=== PATIENT | male | born 1940 | race Caucasian/White ===

== ENCOUNTER 2016-10-13 13:14 | Inpatient (IN) | payer MEDICARE ==
[~2016-10-13] VITALS: Ht 172.7 cm; Wt 117.0 kg
[2016-10-13 14:29] LABS: BASOPHILS 0.1 % (0.0-2.0); EOSINOPHILS 0.6 % (0-7); HEMATOCRIT 35.8 % (42.0-54.0); HEMOGLOBIN 11.5 g/dL (13.5-17.5); IMMATURE GRANULOCYTES 0.9 % (0-5); LYMPHOCYTES 22.6 % (15-50); MCH 29.8 pg (26.0-34.0); MCHC 32.1 g/dL (31.0-37.0); MCV 92.7 fL (80.0-100.0); MEAN PLATELET VOLUME 9.3 fL (7.4-10.4); MONOCYTES 8.4 % (2-11); NEUTROPHILS 67.4 % (40-80); PLATELET COUNT 267 10x3/uL (130-400); RBC 3.86 10x6/uL (4.20-6.10); RDW 16.4 % (11.5-14.5); WBC 17.4 10x3/uL (4.8-10.8)
[2016-10-13 14:40] LABS: ALBUMIN 1.3 g/dL (3.4-5.0); ALKALINE PHOSPHATASE 158 U/L (46-116); ALT (SGPT) 13 U/L (10-68); BILIRUBIN - TOTAL 0.73 mg/dL (0.2-1.3); CALC OSMOLALITY 290 mosm/kg (275-300); CALCIUM 7.8 mg/dL (8.5-10.1); CARBON DIOXIDE 30.2 mmol/L (21.0-32.0); CHLORIDE - SERUM 108 mmol/L (98-107); CREATININE - SERUM 0.9 mg/dL (0.6-1.3); GLUCOSE 153 mg/dL (74-106); PROTEIN - SERUM 5.6 g/dL (6.4-8.2); SODIUM 145 mmol/L (136-145); UREA NITROGEN 11 mg/dL (7-18); eGFR NON AFRICAN AMERICAN 87 mL/min (90-120)
[2016-10-13 14:45] LABS: POTASSIUM - SERUM 2.7 mmol/L (3.5-5.1)
[2016-10-13 15:05] LABS: INR 1.36 (0.85-1.17); PROTIME 16.6 SECONDS (11.6-15.0)
[2016-10-13 16:07] LABS: APPEARANCE HAZY (CLEAR); COLOR DK YELLOW (YELLOW)
[2016-10-13 16:08] LABS: BILIRUBIN NEGATIVE (NEGATIVE); GLUCOSE NEGATIVE (NEGATIVE); KETONE NEGATIVE (NEGATIVE); LEUKOCYTE ESTERASE 2+ (NEGATIVE); NITRITE NEGATIVE (NEGATIVE); PROTEIN 1+ mg/dL (NEGATIVE); UROBILINOGEN NORMAL (NORMAL)
[2016-10-13 16:09] LABS: WHITE CELLS - URINE >50 /hpf (0-5)
[2016-10-13 16:10] LABS: BACTERIA MANY /hpf (NONE SEEN)
--- NOTE | 2016-10-13 22:05 | NUR ---
PT RECIEVED FROM ER VIA STRETCHER TO ROOM 2237. TRANSFERRED TO BED WITH A 4 PERSON SHEET LIFT. PT IS ALERT AND ORIENTED X 2. ABLE TO ANSWER PERSONAL QUESTIONS APPROPRIATELY. PT HAS A RIGHT LEG STUMP INCISION THAT HAS EVULSED A LARGE AREA. NO DRESSING NOTED ON IT. SEROUS DRAINAGE WITH A VERY FOUL ODOR NOTED. SITE CLEANSED WITH NS, AND A NS WET TO DRY DRESSING APPLIED. PEELING DUODERM DRESSING NOTED ON COCCYX. 3 STAGE 2 ULCERS NOTED. SITE CLEANSED, AND MEPILEX DRESSING APPLIED. LEFT UPPER ARM HAS 2 HEALING SKIN TEARS. RIGHT REAR SHOULDER HAS A STAGE 1 ULCER THAT WILL NOT IVETT. LEFT HEEL HAS 2 UNSTAGEABLE ULCERS. PT POSITIONED IN BED WITH PILLOWS. SR'S ARE UP X 3 IN BED. CALLLIGHT AND BEDSIDE TABLE ARE WITHIN EASY REACH.
[2016-10-13 23:26] VITALS: BMI 39.4
--- NOTE | 2016-10-13 23:53 | NUR ---
PT IS RESTING QUIETLY IN BED WITH EYES CLOSED. RESPS ARE EVEN AND UNLABORED. NO ACUTE DISTRESS NOTED.
[2016-10-14] VITALS (7 sets, daily range): BP systolic 93–152; BP diastolic 65–102; Ht 172.7 cm; Wt 117.0 kg
[2016-10-14] MEDS ORDERED: HUMULIN R100 U/ML SC (00:48)
[2016-10-14] MEDS ORDERED: ONDANSETRON4 MG/2 M3 IV (00:49)
[2016-10-14] MEDS ORDERED: ACETAMINOPHEN500 M1 PO (01:33)
[2016-10-14] MEDS ORDERED: HYDROCODONE-APA1 TAB PO (01:34)
[2016-10-14] MEDS ORDERED: PRINIVIL20 MG PO (01:34)
[2016-10-14] MEDS ORDERED: DITROPAN X5 MG/BOTTL PO (01:35)
--- NOTE | 2016-10-14 01:47 | NUR ---
PT IS RESTING QUIETLY IN BED WITH EYES CLOSED. RESPS ARE EVEN AND UNLABORED. NO ACUTE DISTRESS NOTED.
--- NOTE | 2016-10-14 03:41 | NUR ---
RESTING QUIETLY IN BED WITH EYES CLOSED. NO ACUTE DISTRESS NOTED.
--- NOTE | 2016-10-14 06:56 | NUR ---
PT RESTING IN BED WITH EYES CLOSED. NO ACUTE DISTRESS NOTED.
--- NOTE | 2016-10-14 07:30 | NUR ---
QUIET IN ROOM AT PRESENT DENIES ANY NEEDS AT THIS TIME IV CONT AT 100CC/HR/IVAC/LAC SPACE AT PRESENT SITE CLEAN AND DRY AT PRESENT.
--- NOTE | 2016-10-14 09:15 | NUR ---
CONT NPO AT PRESENT DENIES ANY NEEDS AT PRESENT.
--- NOTE | 2016-10-14 11:00 | NUR ---
CONT NPO AT PRESENT DENIES ANY NEEDS AT THIS TIME.
[2016-10-14 13:08] LABS: CALC OSMOLALITY 289 mosm/kg (275-300); CALCIUM 7.2 mg/dL (8.5-10.1); CARBON DIOXIDE 23.6 mmol/L (21.0-32.0); CHLORIDE - SERUM 110 mmol/L (98-107); CREATININE - SERUM 0.7 mg/dL (0.6-1.3); GLUCOSE 142 mg/dL (74-106); SODIUM 145 mmol/L (136-145); UREA NITROGEN 10 mg/dL (7-18); eGFR NON AFRICAN AMERICAN > 90 mL/min (90-120)
[2016-10-14 13:09] LABS: POTASSIUM - SERUM 3.6 mmol/L (3.5-5.1)
--- NOTE | 2016-10-14 13:15 | NUR ---
TO OR VIA BED AT PRESENT N/C AT PRESENT.
--- NOTE | 2016-10-14 14:53 | NUR ---
UPON ENTRANCE TO THE PATIENTS ROOM ON THE FLOOR HE STARTED MOANING AND COMPLAINED OF SOME PAIN. DILAUDID 1 MG IV WAS GIVEN PER ANESTHESIA ORDER. OIL SPRAYER WAITING 10 MIN WITH THE PATIENT AFTER ADMINISTRATION. THE PATIENT THEN REPORTS A DECREASE IN PAIN AND IS RESTING COMFORTABLE
--- NOTE | 2016-10-14 15:33 | NUR ---
ICE TO STUMP AT PRESENT.
--- NOTE | 2016-10-14 16:02 | NUR ---
CONT TO SLEEP QUIETLY AT PRESENT N/C AT PRESENT.
[2016-10-14 16:54] LABS: BASOPHILS 0.2 % (0.0-2.0); HEMATOCRIT 34.3 % (42.0-54.0); HEMOGLOBIN 10.8 g/dL (13.5-17.5); IMMATURE GRANULOCYTES 1.1 % (0-5); LYMPHOCYTES 28.9 % (15-50); MCH 29.3 pg (26.0-34.0); MCHC 31.5 g/dL (31.0-37.0); MCV 93.2 fL (80.0-100.0); NEUTROPHILS 59.8 % (40-80); PLATELET COUNT 257 10x3/uL (130-400); RBC 3.68 10x6/uL (4.20-6.10); RDW 16.5 % (11.5-14.5)
[2016-10-14 16:56] LABS: WBC 11.2 10x3/uL (4.8-10.8)
[2016-10-14 17:11] LABS: APTT 47.7 SECONDS (22.8-39.4); INR 1.36 (0.85-1.17); PROTIME 16.7 SECONDS (11.6-15.0)
--- NOTE | 2016-10-14 20:10 | NUR ---
REC'D IN BED WITH EYES CLOSED EASILY AROUSED WHEN NAME IS CALLED. RESP EVEN AND UNLABORED WITN NO DISTRESS NOTED. CAN EXPRESS SOME NEEDS AND WANTS. ASSESSMENT COMPLETED. C/L IN REACH AT BEDSIDE.
[2016-10-15] VITALS: BP 113/68
--- NOTE | 2016-10-15 02:46 | NUR ---
PT IS ASLEEP WITH EASY RESPIRATIONS AND NO DISTRESS NOTED. THE PATIENT IS ON ROOM AIR AND THERE IS A WOUND VAC IN PLACE WORKING. THE BED IS LOW, RAILS UP X'S 2 WITH THE CALL LIGHT AT HAND.
[2016-10-15 04:00] VITALS: BP 118/76
[2016-10-15 07:31] LABS: BASOPHILS 0.1 % (0.0-2.0); EOSINOPHILS 0.9 % (0-7); HEMATOCRIT 31.1 % (42.0-54.0); HEMOGLOBIN 9.9 g/dL (13.5-17.5); LYMPHOCYTES 28.1 % (15-50); MCH 29.5 pg (26.0-34.0); MCHC 31.8 g/dL (31.0-37.0); MCV 92.6 fL (80.0-100.0); MEAN PLATELET VOLUME 9.1 fL (7.4-10.4); MONOCYTES 9.3 % (2-11); NEUTROPHILS 60.6 % (40-80); PLATELET COUNT 257 10x3/uL (130-400); RBC 3.36 10x6/uL (4.20-6.10); RDW 16.6 % (11.5-14.5); WBC 9.9 10x3/uL (4.8-10.8)
[2016-10-15 07:58] LABS: CALC OSMOLALITY 287 mosm/kg (275-300); CARBON DIOXIDE 26.3 mmol/L (21.0-32.0); CHLORIDE - SERUM 110 mmol/L (98-107); CREATININE - SERUM 0.8 mg/dL (0.6-1.3); GLUCOSE 106 mg/dL (74-106); SODIUM 145 mmol/L (136-145); THYROID STIMULATING HORMONE 2.09 uIU/mL (0.36-3.74); UREA NITROGEN 9 mg/dL (7-18); eGFR NON AFRICAN AMERICAN > 90 mL/min (90-120)
--- NOTE | 2016-10-15 08:00 | NUR ---
PATIENT RECIEVED DURING WALKING ROUNDS. PATIENT LYING IN BED WITH EVEN RESPIRATIONS. LAB HAS CALLED AND REPORTED A LOW POTASSIUM OF 2.8 AND A LOW MAGNESIUM OF 1.0, BOTH OF WHICH WILL BE CORRECTED WITH ELECTROLYTE PROTOCOL. PT ALSO HAS A LOW CALCIUM LEVEL OF 6.7, MD FOLLOWING. ASSESSMENT DONE PER FLOW SHEET. BED IN LOW POSITION AND CALL LIGHT WITHIN REACH. WILL CONTINUE TO MONITOR.
[2016-10-15 08:02] LABS: CALCIUM 6.7 mg/dL (8.5-10.1); POTASSIUM - SERUM 2.8 mmol/L (3.5-5.1)
[2016-10-15 08:24] VITALS: BP 152/84
[2016-10-15 11:52] VITALS: BP 97/50
--- NOTE | 2016-10-15 12:16 | NUR ---
PATIENT IN BED WITH EYES CLOSED RESTING QUIETLY AT THIS TIME. NO COMPLAINTS. CALL LIGHT WITHIN REACH.
--- NOTE | 2016-10-15 15:52 | HP ---
PATIENT: MARIANO VARGAS MEDICAL RECORD: [id number] ACCOUNT: [id number] LOCATION:D.[facility] [id number] : 40 ADMISSION DATE: 10/13/16 HISTORY AND PHYSICAL EXAMINATION HISTORY OF PRESENT ILLNESS: A 75-year-old white male was brought in to the Emergency Room by ambulance from a local [facility] for evaluation of mental status changes. Evidently, the patient had had a right BKA done approximately 3-4 weeks ago and has had some wound dehiscence. Since that time, the patient began having some confusion and was brought in and evaluated appropriately in the Emergency Room and was found to be admitted for further evaluation. The patient does have an obvious wound dehiscence on his right lower extremity. He also had UTI and some other medical problems. The patient will be admitted to the hospital and orthopedic consultation will be obtained. PAST MEDICAL HISTORY: Significant for peripheral vascular disease, right BKA and type 2 diabetes mellitus, low back pain, osteoarthritis, dysphagia, chronic kidney disease, cognitive communication defect, hypertension, hyperlipidemia, coronary artery disease, vitamin D deficiency, GERD, arrhythmia and constipation. PAST SURGICAL HISTORY: Includes recent right BKA. HABITS: The patient does not smoke, does not drink alcohol. MEDICATIONS: Include oxycodone, Celexa, Carafate, Zofran, Prilosec, MS Contin, ProMod, multivitamin, Zinc, Zocor, metoprolol, Colace, digoxin and vitamin C. REVIEW OF SYSTEMS: As above. PHYSICAL EXAMINATION: VITAL SIGNS: As below. GENERAL: He is a well-developed, well-nourished, confused 75-year-old obese white male who is resting comfortably in the ER, has a Lowery intact with a very thick discolored urine and a right wound dehiscence that is present. HEENT: His pupils do react to light. Extraocular movements are intact. He does open his eyes and follow commands. NECK: No nuchal rigidity is noted. LUNGS: Clear to auscultation bilaterally. HEART: Regular rate and rhythm with a I/ systolic ejection murmur. ABDOMEN: Soft, obese and nontender. Positive bowel sounds. No hepatosplenomegaly, no masses. EXTREMITIES: He has a wound dehiscence on the right lower extremity with granulation tissue present. Stitches are still present. He has 1+ DP pulses and has 1+ dependent edema in the left lower extremity. LABORATORY DATA: Urinalysis shows many bacteria, greater than 50 wbc's. Potassium is low at 2.7. ASSESSMENT: 1. Wound dehiscence. 2. Sepsis. 3. Type 2 diabetes mellitus. 4. Cognitive dysfunction. 5. Hypertension. HISTORY AND PHYSICAL [id number] MARIANO VARGAS 6. Arrhythmia. PLAN: The patient will be admitted to the hospital, orthopedic evaluation will be obtained. We will replace potassium, check laboratory appropriately, antibiotics and follow the patient. TRANSINT:[id number] Voice Confirmation ID: [id number] DOCUMENT ID: [id number] VIOLET SHERIDAN MD at 1552 CC: [id number] DICTATION DATE: 10/13/161802 COMMERCIAL FIELD INSPECTOR: 10/13/161955 ADM IN [facility] [address] [place] [address]
[2016-10-15 16:27] VITALS: BP 87/47
--- NOTE | 2016-10-15 18:24 | NUR ---
RECHECKED BP FROM 1630 READING. BP NOW 95/60. WILL CONTINUE TO MONITOR.
[2016-10-15 19:00] VITALS: BP 104/62
--- NOTE | 2016-10-15 19:40 | NUR ---
ASSESSMENT COMPLETED, WOUND VAC TO R STUMP ON AND RUNNING AT 125MM/HG NO ACUTE DISTRESS NOTED, CL IN REACH, DOOR OPEN FOR EASY VIEWING, WILL MONITOR
--- NOTE | 2016-10-15 20:15 | NUR ---
INFORMED DUGLAS LYON OF BLOOD PRESSURE SITUATION AND TO CONTINUE TO MONITOR. PT IS CURRENTLY STABLE NO SIGNS OF DISTRESS NOTED.
--- NOTE | 2016-10-16 01:26 | NUR ---
PRN NORCO GIVEN FOR R STUMP PAIN, ADALID WELL
--- NOTE | 2016-10-16 01:32 | NUR ---
IV TO L AC INFILTRATED, DC'D WITH CATH INTACT, PT REFUSES TO ALLOW RESITING, REFUSING ALL MEDICATIONS, STATES "I'M GONNA HAVE A SERIOUS TALK WITH MY SON, THE DOCTOR AND THE SHERRIF" WILL MONITOR
[2016-10-16 04:00] VITALS: BP 121/81
[2016-10-16 06:03] LABS: BASOPHILS 0.2 % (0.0-2.0); EOSINOPHILS 0.8 % (0-7); HEMATOCRIT 31.3 % (42.0-54.0); HEMOGLOBIN 9.9 g/dL (13.5-17.5); LYMPHOCYTES 29.1 % (15-50); MCH 29.2 pg (26.0-34.0); MCHC 31.6 g/dL (31.0-37.0); MCV 92.3 fL (80.0-100.0); MEAN PLATELET VOLUME 9.1 fL (7.4-10.4); MONOCYTES 6.8 % (2-11); NEUTROPHILS 62.1 % (40-80); PLATELET COUNT 283 10x3/uL (130-400); RBC 3.39 10x6/uL (4.20-6.10); RDW 16.9 % (11.5-14.5); WBC 11.9 10x3/uL (4.8-10.8)
[2016-10-16 06:09] LABS: CALC OSMOLALITY 288 mosm/kg (275-300); CALCIUM 7.1 mg/dL (8.5-10.1); CARBON DIOXIDE 27.2 mmol/L (21.0-32.0); CHLORIDE - SERUM 112 mmol/L (98-107); CREATININE - SERUM 0.7 mg/dL (0.6-1.3); GLUCOSE 94 mg/dL (74-106); SODIUM 146 mmol/L (136-145); UREA NITROGEN 6 mg/dL (7-18); eGFR NON AFRICAN AMERICAN > 90 mL/min (90-120)
--- NOTE | 2016-10-16 06:57 | NUR ---
CONTINUES TO REFUSE TO ALLOW IV TO BE RESITED
--- NOTE | 2016-10-16 07:40 | NUR ---
RECIEVED PT DURING WALKING ROUNDS. PT IN BED WITH COMPLAINTS OF PAIN OF A 10 ON A SCALE OF 1-10. INFORMED PT THAT PAIN MEDICATION WOULD BE GIVEN PER ORDER. PT REFUSES TO LET THIS NURSE RESITE IV AT THIS TIME. ASSESSMENT DONE PER FLOWSHEET. BED IN LOW POSITION AND CALL LIGHT WITHIN REACH. WILL CONTINUE TO MONITOR.
--- NOTE | 2016-10-16 08:30 | NUR ---
POTASSIUM LIQUID GIVEN PER PROTOCOL FOR A POTASSIUM OF 3.0. PT WOULD NOT DRINK THE WHOLE AMOUNT AT THIS TIME. WILL CONTINUE TO MONITOR AMOUNT TAKEN IN. BED IN LOW POSITION AND CALL LIGHT WITHIN REACH. WILL CONTINUE TO MONITOR.
--- NOTE | 2016-10-16 09:00 | NUR ---
WITHOUT DISTRESS.BED CAHPADILLAE AND PT REPOSITIONED BY MYSELF AND HEYDI.CALL LIGHT IN REACH
[2016-10-16 10:20] VITALS: BP 165/75
--- NOTE | 2016-10-16 11:00 | NUR ---
PV NURSE DUGLAS GERARDO ATTEMPTED TO RESITE IV AND WAS UNSUCCESSFUL. SPOKE WITH MICHELLE LOVE AND RECIEVED ORDERS FOR A CONSULT FOR MIDLINE OR PICC. WILL CONTINUE TO PATO.
--- NOTE | 2016-10-16 11:33 | NUR ---
Patient Name: MARIANO VARGAS Admission Status: ER Accout number: [id number] Admission Date: 10-13-2016 : 1940 Admission Diagnosis: Attending: RADHA Current LOS: 3 Anticipated DC Date: 10-19-2016 Planned Disposition: [facility] Facility Primary Insurance: [facility] Discharge Planning Comments: CM SPOKE WITH PATIENT AND SON (MARIANO) REGARDING D/C NEEDS AND PLANS. PATIENT STATED HE LIVES ALONE AND HAS A WHEELCHAIR. PATIENT IS CURRENTLY FROM THE [facility]. PATIENTS PCP IS DR. PISANO IN [place] AND HE USES [facility] IN [place] FOR HIS PHARMACY. PATIENTS SON (MARIANO) STATED PATIENTS HOUSE HAS BEEN REMODELD FOR HIM TO GET AROUND IN USING HIS MOTORIZED WHEELCHAIR. CM WILL CONTINUE TO FOLLOW PATIENT WITH D/C NEEDS AND PLANS. PCP [facility] IN [place] MARIANO CHRISTIANSON) [phone] OR [phone] Forensic Anthropologist: Sabrina Lange Is the patient Alert and Oriented? Yes 0 * How many steps to enter\exit or inside your home? 0 0 * PCP DR. PISANO IN [place] 0 * Pharmacy [facility] IN [place] 0 * Preadmission Environment [facility] Facility 0 * Facility Name [facility] 0 * ADLs Partial Dependent 0 * Partial ADLs (Assistance needed) Ambulation Bathing Dressing Medication Management Toileting Transfers 0 * Equipment Hospital Bed Wheelchair 0 * List name and contact numbers for known caregivers / representatives who currently or will assist patient after discharge: MARIANO CHRISTIANSON) [phone] 0 * Additional services required to return to the preadmission environment? Yes 0 * Can the patient safely return to the preadmission environment? Yes 0 * Has this patient been hospitalized within the prior 30 days at any hospital? No 0 Grand Total: 0
[2016-10-16 13:50] VITALS: BP 115/67
--- NOTE | 2016-10-16 16:24 | NUR ---
WOUND VAC DRESSING CHANGE. 11CM X 14CM RIGHT BKA REVISION ON 10/14/[address] BENNETT. WOUND BED IS RED. BLEEDS EASILY. NO ODOR. NOTHING EXPOSED. BLACK FOAM TO WOUND BED. -125MMHG/MOD/CONTINUOUS SETTINGS. PT TOLERATED WELL.
[2016-10-16 16:58] VITALS: BP 122/70
[2016-10-16 18:29] LABS: MAGNESIUM - SERUM 1.1 mg/dL (1.8-2.4); PHOSPHOROUS 2.6 mg/dL (2.5-4.9); POTASSIUM - SERUM 3.3 mmol/L (3.5-5.1)
--- NOTE | 2016-10-16 19:58 | NUR ---
RECIEVED PT LYING IN BED WITH BLANKET THROWN OFF, ASSESSMENT COMPLETED, NO ACUTE DISTRESS NOTED, KENNEDY DRAINING, COVERED PT, SAFETY PRECAUTIONS IN PLACE, CL IN REACH, WILL MONITOR
[2016-10-16 21:00] VITALS: BP 153/58
--- NOTE | 2016-10-16 23:10 | NUR ---
RESTING WITH EYES CLOSED, SNORING RESP, NO DISTRESS NOTED, SAFETY MEASURES IN PLACE
[2016-10-17 01:00] VITALS: BP 130/62
--- NOTE | 2016-10-17 01:19 | NUR ---
PT AGREED TO MEDS PER MAR AT THIS TIME, NO INSULIN GIVEN PER SLIDING SCALE FOR BS OF 88, SAFETY MEASURES IN PLACE
--- NOTE | 2016-10-17 02:48 | NUR ---
PRN PAIN MED GIVEN PER NOV FOR C/O OF BACK/LEG PAIN, ADALID WELL, REPOSITIONED IN BED, DENIES FURTHER NEEDS AT THIS TIME, WILL MONITOR, SAFETY MEASURES IN PLACE
[2016-10-17 05:47] LABS: BASOPHILS 0.2 % (0.0-2.0); EOSINOPHILS 0.7 % (0-7); HEMATOCRIT 32.3 % (42.0-54.0); HEMOGLOBIN 10.3 g/dL (13.5-17.5); IMMATURE GRANULOCYTES 1.3 % (0-5); LYMPHOCYTES 26.4 % (15-50); MCH 29.4 pg (26.0-34.0); MCHC 31.9 g/dL (31.0-37.0); MCV 92.3 fL (80.0-100.0); MONOCYTES 7.5 % (2-11); NEUTROPHILS 63.9 % (40-80); PLATELET COUNT 289 10x3/uL (130-400); RDW 17.1 % (11.5-14.5); WBC 13.2 10x3/uL (4.8-10.8)
[2016-10-17 06:13] LABS: ALBUMIN 1.1 g/dL (3.4-5.0); ALKALINE PHOSPHATASE 137 U/L (46-116); ALT (SGPT) 12 U/L (10-68); CALC OSMOLALITY 283 mosm/kg (275-300); CALCIUM 7.1 mg/dL (8.5-10.1); CARBON DIOXIDE 26.2 mmol/L (21.0-32.0); CHLORIDE - SERUM 110 mmol/L (98-107); CREATININE - SERUM 0.7 mg/dL (0.6-1.3); GLUCOSE 115 mg/dL (74-106); POTASSIUM - SERUM 3.1 mmol/L (3.5-5.1); PROTEIN - SERUM 5.1 g/dL (6.4-8.2); SODIUM 143 mmol/L (136-145); UREA NITROGEN 7 mg/dL (7-18); eGFR NON AFRICAN AMERICAN > 90 mL/min (90-120)
[2016-10-17 08:22] VITALS: BP 118/77
--- NOTE | 2016-10-17 09:00 | NUR ---
SCHEDULED MEDICATIONS ADMINISTERED AT THIS TIME. PT DENIES NEED FOR PAIN MEDICATION AT THIS TIME. ASSESSMENT PERFORMED PER FLOWSHEET. ORIENTED TO PERSON AND TIME ONLY. LEFT ARM NOTED TO BE SWOLLEN IN COMPARISON. LEFT UPPER ARM MIDLINE CHECKED FOR BLOOD RETURN, BUT THERE WAS NOT ANY. NOTIFIED HUMAIRA OF THIS FINDING. CALL LIGHT IN REACH, SRX2 AND BED IN LOWEST POSITION AND LOCKED. WOUND VAC REMAINS PATENT TO RIGHT BKA. WILL CONTINUE WITH PLAN OF CARE.
--- NOTE | 2016-10-17 10:30 | NUR ---
IV PLACEMENT CHECKED VIA ULTRASOUND BY DUGLAS GERARDO. LEFT HAND/ARM SWOLLEN D/T IV INFILTRATION TO LEFT ARM YESTERDAY. PLACEMENT VERIFIED AND LEFT UPPER ARM MIDLINE PATENT.
[2016-10-17 11:47] VITALS: BP 104/51
--- NOTE | 2016-10-17 12:46 | NUR ---
SCHEDULED MEDICATIONS ADMINISTERED AT THIS TIME. FSBS 134. ELECTROLYTE PROTOCOL INITIATED IV FOR POTASSIUM 3.1 SINCE PT REFUSES TO DRINK ORAL POTASSIUM LIQUID MIXED IN JUICE.
--- NOTE | 2016-10-17 14:24 | NUR ---
NUTRITION MONITORING & EVAL PT SLEEPING. DIABETIC DIET WITH CURRENT POOR PO INTAKE. NOTE PT FOR PROCEDURE ON SUNDAY. RD FOLLOWING
--- NOTE | 2016-10-17 14:59 | NUR ---
SECOND 10 MEQ BAG OF POTASSIUM HUNG AT THIS TIME. PT SLEEPING. LEFT MESSAGE ON SINDY'S PHONE, 2228, REGARDING WOUND CARE.
--- NOTE | 2016-10-17 16:10 | NUR ---
PRN NORCO ADMINISTERED PER ORDER FOR PAIN 10/10. DRESSING CHANGE PROVIDED TO RIGHT AND LEFT BUTTOCK AND LEFT HEEL WITH THE ASSISTANCE OF DUGLAS HUNTERSOFTWARE ENGINEER SALES NURSE. KENNEDY CARE PROVIDED WITH CATHETER CARE WIPES. STICKER PLACED ON KENNEDY CASSETTE. PT TOLERATED WITH MODERATE AMOUNT OF PAIN. CALL LIGHT IN REACH, WILL CONTINUE WITH PLAN OF CARE.
[2016-10-17 16:21] VITALS: BP 100/56
[2016-10-17 19:00] VITALS: BP 114/78
--- NOTE | 2016-10-17 20:11 | NUR ---
4 UNITS INSULIN GIVEN FOR BS OF 167 PER SLIDING SCALE, ADALID WELL, SAFETY PRECAUTIONS IN PLACE
[2016-10-18 04:00] VITALS: BP 107/66
--- NOTE | 2016-10-18 08:00 | NUR ---
DENIES WANTING TO EAT AT THIS TIME. ALERT AND ORIENTED TO SELF AND PLACE. WOUND VAC PRESENT TO RIGHT STUMP. CALL LIGHT IN REACH, WILL CONTINUE WITH PLAN OF CARE.
[2016-10-18 08:24] VITALS: BP 95/64
--- NOTE | 2016-10-18 10:15 | NUR ---
DRESSING CHANGE PERFORMED TO PT'S BUTTOCK AT THIS TIME. KENNEDY CARE PROVIDED WITH KENNEDY CARE WIPES. SCD TO LEFT LEG AND LEFT LEG ELEVATED, SO THAT HEEL WAS BRIDGED. ASSESSMENT PERFORMED PER FLOWSHEET. CALL LIGHT IN REACH, WILL CONTINUE WITH PLAN OF CARE.
--- NOTE | 2016-10-18 12:30 | NUR ---
LAB DRAWN AT THIS TIME. EXPLAINED TO PT THAT THE LAB WORK WAS IMPORTANT IN DETERMINING KIDNEY FUNCTIONS AND IF THE ANTIBIOTICS WERE DOING THEIR JOB. PT VERBALIZED UNDERSTANDING. CALL LIGHT IN REACH. WILL CONTINUE WITH PLAN OF CARE.
[2016-10-18 12:39] LABS: BASOPHILS 0.2 % (0.0-2.0); EOSINOPHILS 0.9 % (0-7); HEMATOCRIT 31.8 % (42.0-54.0); HEMOGLOBIN 10.1 g/dL (13.5-17.5); IMMATURE GRANULOCYTES 1.3 % (0-5); LYMPHOCYTES 28.3 % (15-50); MCH 29.4 pg (26.0-34.0); MCHC 31.8 g/dL (31.0-37.0); MCV 92.7 fL (80.0-100.0); MEAN PLATELET VOLUME 9.2 fL (7.4-10.4); MONOCYTES 6.5 % (2-11); NEUTROPHILS 62.8 % (40-80); PLATELET COUNT 324 10x3/uL (130-400); RBC 3.43 10x6/uL (4.20-6.10); RDW 17.6 % (11.5-14.5); WBC 14.2 10x3/uL (4.8-10.8)
[2016-10-18 12:43] VITALS: BP 99/72
[2016-10-18 13:24] LABS: ALBUMIN 1.2 g/dL (3.4-5.0); ALKALINE PHOSPHATASE 142 U/L (46-116); ALT (SGPT) 13 U/L (10-68); BILIRUBIN - TOTAL 0.52 mg/dL (0.2-1.3); CALC OSMOLALITY 284 mosm/kg (275-300); CALCIUM 7.3 mg/dL (8.5-10.1); CARBON DIOXIDE 23.7 mmol/L (21.0-32.0); CHLORIDE - SERUM 111 mmol/L (98-107); CREATININE - SERUM 0.7 mg/dL (0.6-1.3); GLUCOSE 101 mg/dL (74-106); PROTEIN - SERUM 4.8 g/dL (6.4-8.2); SODIUM 144 mmol/L (136-145); UREA NITROGEN 7 mg/dL (7-18); eGFR NON AFRICAN AMERICAN > 90 mL/min (90-120)
[2016-10-18 13:26] LABS: POTASSIUM - SERUM 3.8 mmol/L (3.5-5.1)
--- NOTE | 2016-10-18 15:45 | NUR ---
PT'S SON/POA SIGNED CONSENT FORMS FOR TOMORROW'S PROCEDURE AT THIS TIME. PT DENIES NEEDS. CALL LIGHT IN REACH. WILL CONTINUE WITH PLAN OF CARE.
[2016-10-18 16:21] VITALS: BP 98/72
[2016-10-18 19:00] VITALS: BP 90/63
--- NOTE | 2016-10-18 19:00 | NUR ---
BEDSIDE REPORT RECEIVED AND CARE OF PT ASSUMED. PT LYING IN SEMI TRUJILLO'S POSITION WITH EYES CLOSED AND EASY RESPIRATIONS. LEFT MIDLINE IV PATENT WITH NS INFUSING AT 100 ML / HR. KENNEDY CATHETER DRAINING TO GRAVITY WITY DARK YELLOW URINE IN COLLECTION BAG. WOUND VAC ON RIGHT STUMP COMPRESSED WTIH NO LEAKAGE ALARMS. WILL MONITOR CLOSLEY FOR NEEDS. CALL LIGHT WITHIN REACH.
--- NOTE | 2016-10-18 22:20 | NUR ---
PT RESTING QUIETLY WITH EYES CLOSED AND EVEN RESPIRATIONS. WOUND VAC PATENT WITH NO LEAKAGE ALARMS.
[2016-10-19 04:00] VITALS: BP 106/64
--- NOTE | 2016-10-19 07:55 | NUR ---
PATIENT IN RIGHT LATERAL POSITION WITH EYES CLOSED. DID ASSESSMENT VERY CAREFULLY IN ATTEMPTS NOT TO WAKE SECONDARY TO PATIENT SPENDING MOST OF MORNING HOLLERING OUT. NO VISUAL CUES OF DISTRESS NOTED.
[2016-10-19 08:35] VITALS: BP 128/92
--- NOTE | 2016-10-19 10:14 | NUR ---
CALLED INTO THE PATIENTS ROOM BY THE AIDE, SAID THAT SHE THOUGHT THERE WAS SOMETHING WRONG WTIH THE PATIENTS IV, HE WAS WET AND IT LOOKED LIKE IT MIGHT BE OUT. UPON ENTRY TO ROOM, IT WAS NOTED THAT THE PATIENT HAS PULLED OUT HIS MIDLINE IV, TIP INTACT. HUMAIRA WITH VASCULAR ACCESS CALLED, MESSAGE LEFT ON HER PHONE AND SHE WAS PAGED OVERHEAD.
--- NOTE | 2016-10-19 10:53 | NUR ---
PATIENT YELLING OUT. HE IS DEMANDING WATER. EXPLAINED HE COULD NOT HAVE WATER RIGHT NOW BECAUSE HE WAS NPO FOR HIS SURGERY. HE WANTED TO KNOW WHAT SURGERY HE WAS HAVING AND WE DISCUSSED THAT THEY WERE GOING IN TO WORK A LITTLE MORE ON THIS STUMP TO CLEAN IT UP. HE SAID HE DID NOT NEED THE SURGERY HE WANTED WATER AND CONTINUED TO YELL. THIS NURSE EXPLAINED TO THE PATIENT THAT HE HAS THE RIGHT TO REFUSE TO HAVE HIS SURGERY. IF HE DID SO, I COULD NOTIFY THE PHYSICIAN AND HE MIGHT POSSIBLY BE ABLE TO HAVE WATER THEN. IT WAS EXPLAINED THAT IF HE CHOSE TO CANCEL THE SURGERY AND NOT LET THE DOCTORS DO WHAT NEEDS TO BE DONE SO IT CAN GET BETTER, THEN THERE WOULD BE A CHANCE HE WOULD JUST BE DISCHARGED BACK TO THE INTERMEDIATE AND THERE WAS A HIGH CHANCE THAT IT COULD GET INFECTED FURTHER AND WORSE CASE CENERIO HE COULD . PATIENT WAS ASKED IF HE WOULD BE OK WITH THAT OUTCOME. PATIENT DID NOT ANSWER. PATIENT DID HOWEVER STOP YELLING OUT LOUD AND STOPPED DEMANDING WATER.
--- NOTE | 2016-10-19 11:15 | NUR ---
SPOKE WITH HUMAIRA WITH VASCULAR ACCESS. SHE WILL COME OVER AND SEE THE PATIENT. SURGERY FOR PATIENT SCHEDULED FOR AROUND 1430.
[2016-10-19 12:44] LABS: BASOPHILS 0.3 % (0.0-2.0); EOSINOPHILS 1.1 % (0-7); HEMATOCRIT 31.8 % (42.0-54.0); HEMOGLOBIN 9.9 g/dL (13.5-17.5); IMMATURE GRANULOCYTES 1.2 % (0-5); LYMPHOCYTES 26.3 % (15-50); MCH 29.4 pg (26.0-34.0); MCHC 31.1 g/dL (31.0-37.0); MCV 94.4 fL (80.0-100.0); MEAN PLATELET VOLUME 9.1 fL (7.4-10.4); MONOCYTES 6.2 % (2-11); NEUTROPHILS 64.9 % (40-80); PLATELET COUNT 332 10x3/uL (130-400); RBC 3.37 10x6/uL (4.20-6.10); RDW 17.8 % (11.5-14.5); WBC 14.1 10x3/uL (4.8-10.8)
[2016-10-19 12:48] VITALS: BP 117/61
[2016-10-19 12:57] LABS: ALBUMIN 1.2 g/dL (3.4-5.0); ALKALINE PHOSPHATASE 150 U/L (46-116); ALT (SGPT) 11 U/L (10-68); BILIRUBIN - TOTAL 0.49 mg/dL (0.2-1.3); CALC OSMOLALITY 284 mosm/kg (275-300); CALCIUM 7.2 mg/dL (8.5-10.1); CARBON DIOXIDE 22.3 mmol/L (21.0-32.0); CHLORIDE - SERUM 111 mmol/L (98-107); CREATININE - SERUM 0.6 mg/dL (0.6-1.3); GLUCOSE 92 mg/dL (74-106); POTASSIUM - SERUM 3.5 mmol/L (3.5-5.1); PROTEIN - SERUM 4.9 g/dL (6.4-8.2); SODIUM 144 mmol/L (136-145); UREA NITROGEN 6 mg/dL (7-18); eGFR NON AFRICAN AMERICAN > 90 mL/min (90-120)
--- NOTE | 2016-10-19 13:19 | NUR ---
PATIENT NOW HAS A RIGHT UPPER ARM MIDLINE IV.
--- NOTE | 2016-10-19 13:57 | NUR ---
PATIENT PREOPED FOR SURGERY PER ORDERS. PRE-OP CHECK LIST COMPLETED.
[2016-10-19 15:33] VITALS: BP 105/62
--- NOTE | 2016-10-19 15:40 | NUR ---
PATIENT HERE FROM [facility]. RATING PAIN 10/10. NORCO GIVEN PER PRN ORDER. PER REPORT FROM DUGLAS BACH IN [facility], THE PATIENT WAS DENYING PAIN. PER THE PATIENT, SHE NEVER ASKED HIM ABOUT HIS PAIN.
[2016-10-19 22:41] VITALS: BP 100/63
[2016-10-20] VITALS: BP 87/50
--- NOTE | 2016-10-20 03:30 | NUR ---
PT RESTING QUIETLY, EYES CLOSED. RESP UNLABORED. NO DISTRESS NOTED. WILL CONTINUE TO MONITOR.
[2016-10-20 06:07] VITALS: BP 82/41
--- NOTE | 2016-10-20 07:56 | NUR ---
SCHEDULED MEDICATIONS ADMINISTERED AT THIS TIME WELL PRN NORCO-10 PER ORDER FOR PAIN. WOUND VAC DRESSING C/D/I TO RIGHT STUMP. RIGHT UPPER ARM MIDLINE PATENT WITH NO S/S OF INFILTRATION PRESENT. ASSESSMENT PERFORMED PER FLOWSHEET. POSITIONED ON RIGHT SIDE PER SELF. SCD TO LEFT LEG ON AND IN WORKING ORDER. CALL LIGHT IN REACH, DOOR OPEN, BOX ALARM IN USE AND BED IN LOWEST POSITION AND LOCKED WITH SRX2. WILL CONTINUE WITH PLAN OF CARE.
[2016-10-20 08:31] VITALS: BP 103/63
--- NOTE | 2016-10-20 10:35 | NUR ---
PT TURNED TO RIGHT SIDE AND WOUND CARE PROVIDED TO BUTTOCK. AREA CLEANSED WITH WET WIPE AND PAT DRY. MEPILEX HEART DRESSING APPLIED. PT TOLERATED WITHOUT COMPLAINTS. POSITIONED ON RIGHT SIDE FOR PRESSURE PREVENTION. CALL LIGHT IN REACH, PT DENIES FURTHER NEEDS. WILL CONTINUE WITH PLAN OF CARE.
--- NOTE | 2016-10-20 11:07 | NUR ---
CM REASSESSMENT NOTE: PATIENT TO D/C BACK TO [facility] TO A SKILLED BED TODAY BY AMBULANCE. WOUND VAC ORDERED BY ARMANDO.
[2016-10-20 11:36] VITALS: BP 127/60
[2016-10-20] MEDS ORDERED: LINEZOLID600 MG PO (13:18)
[2016-10-20] MEDS ORDERED: HYDROCODONE-APA1 TAB PO (13:18)
[2016-10-20 15:30] VITALS: BP 111/63
--- NOTE | 2016-10-20 16:40 | NUR ---
REPORT CALLED TO MERRICK THOMPSON AT THE [facility]. [facility] CALLED TO SET UP TRANSPORTATION. WILL NOTIFY PT'S SON.
--- NOTE | 2016-10-20 16:58 | NUR ---
LEFT UPPER ARM MIDLINE IV REMOVED WITH CATH TIP INTACT. BANDAGE APPLIED TO SITE. RIGHT BKA WOUND VAC DRESSING CLAMPED AND WOUND VAC PLACED IN SOILED UTILITY ROOM WITH PT'S NAME ON IT. NOTIFIED WEB MARKETING ANALYST OF THIS. LEFT VOICEMAIL ON PT'S SON'S PHONE.
--- NOTE | 2016-10-20 17:11 | NUR ---
SPOKE WITH PT'S SON AT THIS TIME. LET HIM KNOW THAT HIS FATHER WOULD BE GOING BACK TO THE [facility] THIS EVENING.
--- NOTE | 2016-10-20 17:21 | NUR ---
PT D/C AT THIS TIME [facility] [employer] [facility].
--- NOTE | 2016-10-30 18:23 | OP ---
PATIENT NAME: MARIANO VARGAS MEDICAL RECORD: [id number] :40 LOCATION:D.[facility] [place] ADMISSION DATE:10/13/16 SURGEON: NASIR BENNETT MD DATE OF OPERATION: 10/19/2016 Orthopedic Surgery Operative Note PREOPERATIVE DIAGNOSIS: Open below knee amputation wound. POSTOPERATIVE DIAGNOSIS: Open below knee amputation wound. PROCEDURES: 1. Excisional debridement of open below-knee amputation wound to include skin, subcutaneous tissue, portions of fat, fascia, muscle and bone. 2. Application of wound VAC. SURGEON: Nasir Bennett MD ANESTHESIA: General. INTRAOPERATIVE COMPLICATIONS: None. SUMMARY OF PATHOLOGIC FINDINGS: This is cleaned up substantially since the previous debridement; however, it is not amenable to closure today. Given that it still had some necrotic tissue in it and has not demarcated. There was some gastroc flap that had to be resected today as well as some shortening of the tibia. OPERATIVE SUMMARY IN DETAIL: After obtaining the appropriate preoperative orthopedic surgery consent as well as anesthetic consultation, evaluation and clearance, the patient was brought to the operating room and placed on the operating table in supine position. After adequate general laryngeal mask airway was administered, tourniquet was placed about the proximal aspect of the right lower extremity. It was not used during this case. Right lower extremity was then prepped and draped in a routine sterile fashion. Serial and sequential curettage, rongeur and scalpel debridement was done of multiple areas of necrotic tissue as well as the aforementioned gastroc flap. The bony end was rongeured down and freshened up to try and get further bleeding of the bone. Having completed this, further irrigation was then followed by placement of a wound VAC at 125 mm of negative pressure, medium intensity, continuous. The patient was awakened, taken to recovery room in stable condition. All final needle and sponge counts were correct. TRANSINT:[id number] Voice Confirmation ID: [id number] DOCUMENT ID: [id number] DONALD MAYNARD, NASIR RM at 1823 CC: [id number] DICTATION DATE: 10/19/16 1500 CAST ASSOCIATE: 10/19/16 1519 DIS IN 10/20/16 [id number] [place] [address]
--- NOTE | 2016-12-04 14:52 | OP ---
PATIENT NAME: MARIANO VARGAS MEDICAL RECORD: [id number] :40 LOCATION:D.[facility] [place] ADMISSION DATE:10/13/16 SURGEON: NASIR BENNETT MD DATE OF OPERATION: 10/14/2016 PREOPERATIVE DIAGNOSIS: Wound dehiscence of below-knee amputation. POSTOPERATIVE DIAGNOSIS: Wound dehiscence of below-knee amputation. PROCEDURES: 1. Excisional debridement of open wound of below-knee amputation to include skin, subcutaneous tissue, portions of fat, fascia, muscle and bone. 2. Application of wound VAC. SURGEON: Nasir Bennett MD. ANESTHESIA: General. INTRAOPERATIVE COMPLICATIONS: None. SUMMARY OF PATHOLOGIC FINDINGS: This debridement will have to be repeated again; however, after today's resection, will likely need one final resection, still not amenable to closure. OPERATIVE SUMMARY IN DETAIL: After obtaining the appropriate preoperative surgery consent was well as anesthetic consultation, evaluation and clearance, the patient was brought to the operating room and placed on the operating table in supine position. After adequate general laryngeal mask airway was administered, tourniquet was placed about the proximal aspect of the right lower extremity. Note that it was not used during this case. Right lower extremity was prepped and draped in a routine sterile fashion. Serial and sequential curettage, rongeur and scalpel debridement was done in multiple areas. The necrotic portion of the posterior gastroc flap was further taken down. The BKA stump was cut back further as it was exposed. Having completed this, copious pulsatile lavage irrigation was then followed by application of wound VAC at 125 mmHg set on medium intensity, continuous. The patient was awakened, taken to recovery room in stable condition. All final needle and sponge counts were correct. TRANSINT:[id number] Voice Confirmation ID: [id number] DOCUMENT ID: [id number] NASIR BENNETT MD at 1452 CC: [id number] DICTATION DATE: 11/30/16 1007 SUBWAY OPERATOR: 11/30/16 1752 DIS IN 10/20/16 [facility] [address] [place] [address]
== END 2016-10-20 17:22 | DRG 853 ==
LOC: D.ER 13:14 → D.MS 17:57 → D.CLR 10-16 17:17 → D.MS 10-16 17:19
PROVIDERS: Emergency Medicine; Family Medicine; Orthopaedic Surgery; Physician Assistant; ADMIT Family Medicine
PROC: 0Y6C0Z3 Detachment at Right Upper Leg, Low, Open Approach (ICD-10-PCS; principal; 2016-10-14 11:13)
PROC: 05HC33Z Insertion of Infusion Device into Left Basilic Vein, Percutaneous Approach (ICD-10-PCS; 2016-10-17)
PROC: 0QBG0ZZ Excision of Right Tibia, Open Approach (ICD-10-PCS; 2016-10-17)
PROC: 05H733Z Insertion of Infusion Device into Right Axillary Vein, Percutaneous Approach (ICD-10-PCS; 2016-10-19)
DX: A41.9 Sepsis, unspecified organism (principal); L89.153 Pressure ulcer of sacral region, stage 3; L89.623 Pressure ulcer of left heel, stage 3; N39.0 Urinary tract infection, site not specified; T87.81 Dehiscence of amputation stump; E11.9 Type 2 diabetes mellitus without complications; I49.9 Cardiac arrhythmia, unspecified; L89.312 Pressure ulcer of right buttock, stage 2; L89.320 Pressure ulcer of left buttock, unstageable; E87.6 Hypokalemia; R41.841 Cognitive communication deficit; E83.51 Hypocalcemia; Z79.4 Long term (current) use of insulin; I73.9 Peripheral vascular disease, unspecified; I25.10 Atherosclerotic heart disease of native coronary artery without angina pectoris; N18.9 Chronic kidney disease, unspecified

== ENCOUNTER 2016-10-23 23:26 | Emergency (ER) | payer MEDICARE ==
[2016-10-14 11:16] VITALS: BMI 39.3
[~2016-10-23 23:26] MED LIST: ACETAMINOPHEN500 M1 PO; DITROPAN X5 MG/BOTTL PO; HUMULIN R100 U/ML SC; HYDROCODONE-APA1 TAB PO; LINEZOLID600 MG PO; ONDANSETRON4 MG/2 M3 IV; PRINIVIL20 MG PO
[2016-10-24 00:42] LABS: BASOPHILS 0.3 % (0.0-2.0); EOSINOPHILS 1.4 % (0-7); HEMATOCRIT 30.5 % (42.0-54.0); HEMOGLOBIN 9.3 g/dL (13.5-17.5); IMMATURE GRANULOCYTES 0.7 % (0-5); LYMPHOCYTES 27.6 % (15-50); MCH 29.5 pg (26.0-34.0); MCHC 30.5 g/dL (31.0-37.0); MCV 96.8 fL (80.0-100.0); MEAN PLATELET VOLUME 9.6 fL (7.4-10.4); MONOCYTES 7.4 % (2-11); NEUTROPHILS 62.6 % (40-80); PLATELET COUNT 498 10x3/uL (130-400); RBC 3.15 10x6/uL (4.20-6.10); RDW 19.3 % (11.5-14.5); WBC 14.5 10x3/uL (4.8-10.8)
[2016-10-24 00:56] LABS: ALBUMIN 1.1 g/dL (3.4-5.0); ALKALINE PHOSPHATASE 166 U/L (46-116); ALT (SGPT) 12 U/L (10-68); BILIRUBIN - TOTAL 0.37 mg/dL (0.2-1.3); CALC OSMOLALITY 283 mosm/kg (275-300); CALCIUM 7.3 mg/dL (8.5-10.1); CARBON DIOXIDE 24.7 mmol/L (21.0-32.0); CHLORIDE - SERUM 110 mmol/L (98-107); CREATININE - SERUM 0.7 mg/dL (0.6-1.3); GLUCOSE 113 mg/dL (74-106); POTASSIUM - SERUM 2.7 mmol/L (3.5-5.1); PROTEIN - SERUM 4.6 g/dL (6.4-8.2); SODIUM 143 mmol/L (136-145); UREA NITROGEN 7 mg/dL (7-18); eGFR NON AFRICAN AMERICAN > 90 mL/min (90-120)
== END 2016-10-24 04:59 | disposition home or self-care (01) ==
LOC: D.ER 23:26
PROVIDERS: Emergency Medicine
DX: E87.6 Hypokalemia (principal); E13.621 Other specified diabetes mellitus with foot ulcer; Z89.511 Acquired absence of right leg below knee; I49.3 Ventricular premature depolarization